=== PATIENT | male | born 1975 | race Caucasian/White ===

== ENCOUNTER 2020-05-03 12:51 | Outpatient (RCR) | payer OTHER, SELFPAY ==
--- NOTE | 2020-05-03 14:06 | PTOPEVAL ---
Thank you for referring Roderick Ahn to [facility]. Please review, sign, date and return this plan of care [facility]. I agree with and certify that the following plan of care is medically necessary. Referring Physician Date Admitting Provider: Attending Provider: PHYSICIAN NOT ON STAFF Referring Provider: *PT Outpatient Evaluation Start: 05/03/20 13:07 Freq: Status: Active Protocol: Document 05/03/20 13:05 Ashley (Rec: 05/03/20 13:[address] [facility] [id number]) Therapy Assessment Status Assessment Status Assessment Status Evaluation Evaluation Information Problem Diagnosis R heel pain Onset 04/27/20 Additional Evaluation Detail LEFS = Subjective Information patient reports he has been Query Text:As Reported By Patient/ having pain in the R heel for Family about 6 months. he reports he was seeing his MD for a seperate issues with his toe. he reports he thought it was plantar fascitis. he reports he was in a boot that made his foot go numb at night. he reports he is having issues with his foot and 2nd/3rd toes going numb. he reports shoe on helps relieve/manage pain. he reports with shoes off he has symptoms. he reports he has most of his pain in the heel, but numbness in the toes (2nd and 3rd). he reports no injury. 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 he reports walking and standing cause pain, but no shoe sitting is pain free. he reports he has had an mri. Prior Level of Function Comments Additional Prior Level of Function prior to 6 months ago, no Comments issues, but does reports soreness in the feet from standing and walking all day for work. patient reports he has had an injection to the foot/heel, but reports he has had no relief for more than 2- 3 days. Pain Assessment Timing of Pain Assessment Timing of Pain Assessment Assessment Pain Scale Pain Scale Used Numeric (1 - 10) Self Report Pain Assessment Right Heel(s)
== END 2020-05-30 14:44 | disposition home or self-care (01) ==
LOC: CHSPT 12:51
DX: M79.673 Pain in unspecified foot (principal)
CPT/HCPCS: 97035; 97110; 97140; 97161; 97542

== ENCOUNTER 2022-05-13 05:22 | Emergency (ER) | payer OTHER, SELFPAY ==
[2022-05-13 05:35] VITALS: BP 120/80; PULSE 70; RESP 18; TEMP 37.1; O2SAT 100
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
[2022-05-13] MEDS: TETRACAINE HCL 0.5% OPHTH SOLN 4 ML BTL 1 DROP EACH EYE (06:09)
[2022-05-13] MEDS: FLUORESCEIN SOD 1 MG/STRIP EACH EYE (06:09)
[2022-05-13] MEDS: ERYTHROMYCIN OPHTH OINTMENT 3.5 GM TUBE 1 APPLIC EACH EYE (06:09)
[2022-05-13] MEDS: DACRIOSE EYE IRRIGATION 118 ML BOTTLE 60 ML EACH EYE (06:15)
[2022-05-13 06:30] VITALS: BP 128/80; PULSE 70; RESP 18; TEMP 37.2; O2SAT 100
== END 2022-05-13 06:32 | disposition home or self-care (01) ==
PROVIDERS: Emergency Provider Emergency Medicine
DX: H10.9 Unspecified conjunctivitis (principal)
CPT/HCPCS: 99283; A9270

== ENCOUNTER 2025-01-31 09:17 | Outpatient (CLI) | payer OTHER, SELFPAY ==
--- NOTE | ~2025-01-31 | MR_ITS ---
MR cervical spine wo con Ordering provider: Radha Bowens APRN History: 49 years Male with . R20.0 - Anesthesia of skin . Comparison: None. Technique: MRI cervical spine without contrast. FINDINGS: CERVICAL SPINAL CORD/CRANIAL CERVICAL JUNCTION: Normal in signal and caliber. CERVICAL VERTEBRAL BODIES: Normal height and alignment. Normal marrow signal. DISK SPACES: Normal. C2-C3: No stenosis. C3-C4: No stenosis. C4-C5: No stenosis. C5-C6: No stenosis. C6-C7: No stenosis. Diffuse disc bulge with bilateral narrowing of the foramina and with nerve root c ompression. C7-T1: No stenosis. VISUALIZED PARASPINOUS SOFT TISSUES: Normal. Hyperintense signal areas seen in the left parotid the gland most likely a cyst measuring 1.2 cm. IMPRESSION: 1. Diffuse disc bulge at the level of C6-C7 with bilateral narrowing of the foramina and nerve root compression. 2. Hyperintense signal area in the left parotid the gland suggestive of a cyst. Ultrasound Follow-up advised. Reviewed, dictated and finalized at location A. IMPRESSION: 1. Diffuse disc bulge at the level of C6-C7 with bilateral narrowing of the fo ramina and nerve root compression. 2. Hyperintense signal area in the left parotid the gland suggestive of a cyst . Ultrasound Follow-up advised.
--- NOTE | ~2025-01-31 | MR_ITS ---
EXAMINATION: MR shoulder RT wo con DATE: 01/31/2025 10:13 INDICATION: Cervicalgia radiating down the right arm TECHNIQUE: Magnetic resonance imaging (MRI) of the right shoulder was performed without intravenous c ontrast. Sequences included axial PD-weighted FS FSE, coronal oblique PD-weighted FS FSE, coronal obl ique T2-weighted FS FSE, sagittal PD-weighted FS FSE, and sagittal T1-weighted SE. COMPARISON: None. FINDINGS: Coracoacromial arch: The acromion undersurface is flat in morphology (type I). The coracoacromial ligament is normal. Mild acromioclavicular osteoarthritis. Rotator cuff: Mild supraspinatus tendinopathy without tear. The infraspinatus, teres minor and subscapularis tendon s are normal. Normal rotator cuff muscle bulk and signal. Biceps tendon, glenoid labrum and glenohumeral cartilage: Long head of the biceps tendon is normal. There is a small tear at the base of the 12:00 position of the superior glenoid labrum. Glenohumeral cartilage is normal. Fluid: Physiologic amount of fluid in the glenohumeral joint and biceps tendon sheath. No loose osteochondr al bodies. No abnormal fluid signal in the subacromial/subdeltoid bursa to suggest bursitis. Bones: Normal marrow signal with no edema, fracture or abnormal marrow replacing process. IMPRESSION: 1. Mild supraspinatus tendinopathy without tear. 2. Small tear at the superior glenoid labrum. Reviewed, dictated and finalized at location A.
== END 2025-01-31 09:18 | disposition home or self-care (01) ==
LOC: MICIMG 09:23
PROVIDERS: PCP Nurse Practitioner Family; Visit Provider Nurse Practitioner Family
DX: M50.323 Other cervical disc degeneration at C6-C7 level (principal); M48.02 Spinal stenosis, cervical region; K11.6 Mucocele of salivary gland; S43.431A Superior glenoid labrum lesion of right shoulder, initial encounter; X58.XXXA Exposure to other specified factors, initial encounter
CPT/HCPCS: 72141; 73221

== ENCOUNTER 2025-02-07 13:56 | Outpatient (RCR) | payer OTHER, SELFPAY ==
--- NOTE | 2025-02-07 14:56 | PTOPEVAL1 ---
Assessment and note entered by [facility] Evaluation Information Assessment Status Evaluation ICD-10 Condition Codes (PT) Cervicalgia M54.2,Radiculopathy, cervical M54.13 Onset 01/01/25 Subjective Information Pt. reports that woke on 01/01/25 with pain in the neck. He reports that he went to chiropractor and developed spasming into the right arm. He states that he attempt several other chiropractic visits but no change. He reports that he attempted massage, but only had temporary relief. He states that he underwent MRI, which revealed a disc buldge at the C6-7 levels. He reports that he is having little trouble with sleep. He reports that he did attempt cupping at the last massage visit which helped. he reports that he is currently noticing weakness in the triceps. 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 He is left hand dominant. he states that he currently has minimal pain and states that his goal is to improve his arm strength and decrease his numbness. Reported Pain Level Pain Score 4: Self Report Assessment PT Clinical Summary Pt. is a 49 year old male who enters the clinic with a diagnosis of cervical radiculopathy. He presents with impaired c-spine ROM, impaired u.e. strength, impaired postural awareness and pain on this date. Continued skilled PT is indicated in order to improve these areas to allow for improved comfort and efficiency with IADL performance. Plan of Care Interventions Electrical Stimulation,Hot Pack/Cold Pack,Manual Therapy,Mechanical Traction,Neuro Re-education, Patient/Caregiver Education,Therapeutic Activities ,Therapeutic Exercise PT Services Indicated Yes Treatment Frequency and 1x/week x 4 visits Duration These treatments will address the objective and functional deficits as defined above. The patient will be advanced safely and appropriately in order for the patient to progress towards his/her prior level of function. Additional exercises will be introduced and as well as a comprehensive home exercise program upon discharge, if needed, ?to ensure carryover of functional gains achieved in the clinic. This treatment plan has been reviewed and agreement upon by the patient.
--- NOTE | 2025-03-01 15:26 | OPREHPOC ---
Outpatient Therapy Plan of Care This is a Multidisciplinary Plan of Care that may contain components documented by all disciplines (PT, OT, and ST.) PT Problem 1 PT Problem #1 Knowledge Deficit PT Goal 1 Goal / Goal Update Pt. will be independent with a HEP addressing strength and postural awareness Target Visit 2 Progress Met PT Problem 2 PT Problem #2 Impaired Strength PT Goal 1 Goal / Goal Update Pt. will present with 4+/5 right shoulder ER and right elbow extension strength Target Visit 4 PT Problem 3 PT Problem #3 Impaired Range of Motion PT Goal 1 Goal / Goal Update Pt. will present with 80 degrees c-spine rotation AROM. Target Visit 4 Progress Met PT Problem 4 PT Problem #4 Impaired Functional Mobility PT Goal 1 Goal / Goal Update Pt. will present with no limitation on the NDI indicating significant functional improvement. Target Visit 4 Progress Met
--- NOTE | 2025-03-01 15:26 | PTOPDC ---
Assessment and note entered by [facility], PT Evaluation Information Assessment Status Discharge ICD-10 Condition Codes (PT) Cervicalgia M54.2,Radiculopathy, cervical M54.13 Onset 01/01/25 Subjective Information patient reports he feels Good today. he has no pain or radicular symptoms, and reports he feels a lot stronger in the back of the arm especially compared to when he started PT. Reported Pain Level Pain Score 0: Self Report Assessment PT Clinical Summary mr. cano presents to skilled PT services for his 4th skilled PT visit. he displays improvement in cervical rom, ndi score, and strength. he is only lacking full achievement of R triceps strength goal, but has met all other goals. he will DC skilled PT today, and continue with HEP independent at home. Plan of Care PT Services Indicated Yes
== END 2025-03-01 20:00 | disposition home or self-care (01) ==
LOC: CHSPT 13:56
PROVIDERS: Visit Provider Nurse Practitioner Adult Health
DX: M54.2 Cervicalgia (principal); R20.0 Anesthesia of skin; R20.2 Paresthesia of skin
CPT/HCPCS: 97110; 97112; 97140; 97161

== ENCOUNTER 2025-02-17 13:57 | Outpatient (CLI) | payer OTHER, SELFPAY ==
--- NOTE | ~2025-02-17 | US_ITS ---
Left lower extremity ULTRASOUND (Doppler ultrasound interrogation techniques used as needed for this exam.) Ordering provider: Radha Bowens APRN History: . 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 Comparison: None. FINDINGS/impression: The left parotid the gland measures 5.1 x 2.7 x 1.7 cm. Complex cystic areas seen measuring 2 x 1 x 1 cm. Small solid area is seen in the gland with blood fl ow is noted. Further evaluation and follow-up advised. Reviewed, dictated and finalized at location A.
== END 2025-02-17 13:58 | disposition home or self-care (01) ==
LOC: CHSIMG 13:59
PROVIDERS: PCP Nurse Practitioner Family; Visit Provider Nurse Practitioner Family
DX: K11.6 Mucocele of salivary gland (principal)
CPT/HCPCS: 76536

== ENCOUNTER 2025-03-28 14:55 | Outpatient (CLI) | payer OTHER, SELFPAY ==
--- NOTE | ~2025-03-28 | MR_ITS ---
EXAMINATION: MR orbits face neck wo/w con DATE: 03/28/2025 15:59 INDICATION: Other diseases of salivary glands TECHNIQUE: Magnetic resonance imaging (MRI) of the face and neck was performed without and with 19 mL Multihance intravenous contrast. Sequences included axial, sagittal and coronal T1-weighted FSE, axi al and coronal fluid sensitive FSE STIR, axial T1-weighted FS FSE and post contrast axial, sagittal a nd coronal T1-weighted FS FSE were also obtained. COMPARISON: MRI dated 01/31/2025 and ultrasound dated 02/17/2025 FINDINGS: Again seen is a 1.2 cm simple appearing T2 hyperintense nonenhancing cyst in the left parotid gland. The right parotid gland is normal. The bilateral submandibular glands and the thyroid are normal. No pathologically enlarged cervical or supraclavicular lymphadenopathy. 5 degrees cervical levocurvature . Sagittal alignment is normal. Vertebral body heights are normal with normal bone marrow signal thro ughout. There is mild disc height loss at C4-C5 and C6-C7. IMPRESSION: 1. No significant change in a likely benign 1.2 cm simple appearing cystic lesion without solid enhan cing soft tissue component in the left parotid gland. Reviewed, dictated and finalized at location B. IMPRESSION: 1. No significant change in a likely benign 1.2 cm simple appearing cystic lesi on without solid enhancing soft tissue component in the left parotid gland.
== END 2025-03-28 14:56 | disposition home or self-care (01) ==
LOC: MICIMG 14:56
PROVIDERS: PCP Nurse Practitioner Family; Visit Provider Otolaryngology Otolaryngology/Facial Plastic Surgery
DX: K11.8 Other diseases of salivary glands (principal)
CPT/HCPCS: 70543; A9577